=== PATIENT | male | born 1995 | race Caucasian/White ===

== ENCOUNTER 2020-07-04 07:45 | Emergency (ER) | payer SELFPAY ==
[~2020-07-04] VITALS: Ht 182.9 cm; Wt 90.9 kg
[2020-07-04 07:50] VITALS: BP 105/87
--- NOTE | 2020-07-04 07:53 | PHYS DOC ---
Past History Past Medical History: No Pertinent History Past Surgical History: No Surgical History Adult General HPI HPI Patient is a 24-year-old male who presents for left knee pain. Onset was yesterday while playing basketball. Patient reports coming down during a rebound when he landed on his left leg and " either hyperextended or twisted my knee". States he was unable to play anymore and went home. Patient reports taking aspirin and ibuprofen for pain relief without significant symptomatic control. Patient reports he has had great difficulty ambulating is weightbearing on left lower extremity is difficult. There is no visual or palpable abnormalities, patient just reports medial knee pain with weightbearing. He is otherwise healthy, has no medical diagnoses, no daily medications, no motor or sensory function change, no neurologic deficits Review of Systems Review of Systems Fourteen body systems of review of systems have been reviewed. See HPI for pertinent positives and negative responses, other robins all other systems are negative, non-pertinent or non-contributory Physical Exam Physical Exam Constitutional: Well developed, well nourished, no acute distress, non-toxic appearance. HENT: Normocephalic, atraumatic, bilateral external ears normal, oropharynx moist, no oral exudates, nose normal. Eyes: PERRLA, EOMI, conjunctiva normal, no discharge. Neck: Normal range of motion, no tenderness, supple, no stridor. Cardiovascular: Heart rate regular per monitor Lungs & Thorax: No respiratory distress or accessory muscle use, bilateral chest rise Abdomen: Abdomen soft, non-tender, bowel sounds present in all quadrants, no guarding or rebound, nonacute abdomen. Skin: Warm, dry, no erythema, no rash. Back: No tenderness, no CVA tenderness. Extremities: No cyanosis, no clubbing, no edema. Unremarkable patella without grind, negative anterior and posterior Kane. Pain on palpation of the posterior fibular head in addition to medial joint line, unremarkable valgus and varus strain or other tests regarding joint laxity Neurologic: Alert and oriented X 3, normal motor & sensory function, no focal deficits noted. Psychologic: Affect normal, judgement normal, mood normal. Current Patient Data Vital Signs Vital Signs Date Time Temp Pulse Resp B/P (MAP) Pulse Ox O2 Delivery O2 Flow Rate FiO2 07/04/20 07:50 97.8 71 16 105/87 (93) 100 Room Air Vital Signs Date Time Temp Pulse Resp B/P (MAP) Pulse Ox O2 Delivery O2 Flow Rate FiO2 07/04/20 07:50 97.8 71 16 105/87 (93) 100 Room Air EKG EKG [] Radiology/Procedures Radiology/Procedures XR KNEE _4 VIEWS WITH PATELLA_LT DATE: 07/04/2020 8:04 AM INDICATION: medial left knee pain, injury COMPARISON: None. FINDINGS: Bones: There is no evidence of acute fracture or dislocation. Joints: The joint spaces are normal. Moderate to large joint effusion. Miscellaneous: None. IMPRESSION: 1. No acute fracture. 2. Moderate to large joint effusion. If there is concern for internal derangement, consider MRI. Electronically signed by: Harsh Mayo MD (07/04/2020 8:23 AM) [id number] Heart Score C/O Chest Pain: N/A HEART Score for Chest Pain: HEART Score for Chest Pain Response (Comments) Value History Slighlty/Non-Suspicious 0 Age < 45 0 Risk Factors No Risk Factors 0 Total 0 Risk Factors: Risk Factors: DM, Current or recent (<one month) smoker, HTN, HLP, family history of CAD, obesity. Risk Scores: Risk Factors: DM, Current or recent (<one month) smoker, HTN, HLP, family history of CAD, obesity. Course & Med Decision Making Course & Med Decision Making ABCs unremarkable. HPI and physical examination consistent with left medial knee injury. Radiograph nonconcerning for any emergent and/or surgical pathol ogy Disclosed findings of small joint effusion, discussed concern of medial meniscal/ligamentous injury and need for PCP follow-up for physical therapy and likely MRI Crutches given while in ER. Supportive care practices advised. Strict return precautions discussed with good understanding by patient, all questions and concerns addressed prior to ER departure Dragon Disclaimer Dragon Disclaimer This electronic medical record was generated, in whole or in part, using a voice recognition dictation system. Departure Departure: Impression: Primary Impression: Left medial knee pain Disposition: 01 DC HOME SELF CARE/HOMELESS Condition: STABLE Referrals: PCP,NO (PCP) Patient Instructions: Knee Pain, RICE - Routine Care for Injuries Additional Instructions: You were seen for knee pain. Your xray did not show any obvious fracture or other abnormality. With that said, there was a small joint effusion indicating definite injury, given mechanism of injury, it is advised that you follow-up with your primary care physician this upcoming week to discuss need for outpatient MRI and potential specialist consultation. In the meantime, continue supportive care practices at home such as nonweightbearing status, utilizing NSAIDs and/or Tylenol for pain and icing. If any concerning signs or symptoms present prior to outpatient follow-up please do not hesitate to come back for repeat evaluation. It was a pleasure to take care of you and I wish you the best going forward DEVI MCRAE DO Jul 04, 2020 07:53
[2020-07-04] MEDS ORDERED: ACETAMINOPHEN 500 MG TABLET PO ONE (08:00)
--- NOTE | 2020-07-04 08:25 | RAD ---
XR KNEE _4 VIEWS WITH PATELLA_LT DATE: 07/04/2020 8:04 AM INDICATION: medial left knee pain, injury COMPARISON: None. FINDINGS: Bones: There is no evidence of acute fracture or dislocation. Joints: The joint spaces are normal. Moderate to large joint effusion. Miscellaneous: None. IMPRESSION: 1. No acute fracture. 2. Moderate to large joint effusion. If there is concern for internal derangement, consider MRI. Electronically signed by: Harsh Mayo MD (07/04/2020 8:23 AM) [id number]
== END 2020-07-04 09:05 | disposition home or self-care (01) ==
LOC: ER 07:45
DX: M25.562 Pain in left knee (principal)
CPT/HCPCS: 73564; 99283